=== PATIENT | male | born 1965 | race Caucasian/White ===

== ENCOUNTER 2019-04-25 11:09 | Emergency (ER) | payer BC ==
[~2019-04-25] VITALS: Ht 172.7 cm; Wt 88.0 kg
[~2019-04-25 11:09] MED LIST: AZITHROMYCIN 2250 MG PO; DIABETA 1.25M1.25 M1 PO; IBUPROFEN 600600 M1 PO; LANTUS SUBQ; LISINOPRIL10 MG PO; LISINOPRIL2.5 MG PO; MICRONASE5 MG PO; NORCO 5-325 TA1 EACH PO; NOVOLIN N100 UNIT/3 SQ; PREDNISONE 2.52.5 M1 PO; ROBAXIN500 MG PO; SIMVASTATIN10 MG PO; VICODIN ES TAB1 EACH PO; ZOCOR
[2019-04-25] MEDS ORDERED: REGLAN 10 MG TA10 MG PO (11:36)
[2019-04-25] MEDS ORDERED: PROTONIX40 M1 PO (11:36)
[2019-04-25 11:41] LABS: ABSOLUTE BASOPHILS 0.1 thou/uL (0.0-0.2); ABSOLUTE EOSINOPHILS 0.6 thou/uL (0.0-0.7); ABSOLUTE LYMPHOCYTES 1.8 thou/uL (0.8-5.3); ABSOLUTE NEUTROPHILS 6.4 thou/uL (1.6-8.1); BASOPHILS 0.8 %; EOSINOPHILS 5.9 %; HEMATOCRIT 45.4 % (42.0-52.0); HEMOGLOBIN 15.3 gm/dL (14.0-18.0); LYMPHOCYTES 18.4 %; MCH 29.3 pg (26.0-34.0); MCHC 33.8 g/dL (28.0-37.0); MCV 86.9 fL (80.0-100.0); MPV 8.8 fl. (7.2-11.1); NUCLEATED RBCS 0 /100WBC; PLATELET COUNT* 206 thou/uL (150-400); POLYS 64.9 %; RBC 5.22 mil/uL (4.50-6.00); RDW-CV 14.7 % (10.5-14.5); WBC 9.8 thou/uL (4.0-11.0)
[2019-04-25 11:50] LABS: URINE BLOOD NEGATIVE (Negative); URINE CLARITY CLEAR; URINE COLOR YELLOW; URINE GLUCOSE-RANDOM 3+ (Negative); URINE KETONES 2+ (Negative); URINE LEUKOCYTES-REFLEX NEGATIVE (Negative); URINE NITRITE-REFLEX NEGATIVE (Negative); URINE PROTEIN NEGATIVE (Negative)
[2019-04-25 11:52] LABS: ANION GAP 12 mmol/L (7-16); BUN 12 mg/dL (7-18); CALCIUM 9.2 mg/dL (8.5-10.1); CHLORIDE 102 mmol/L (98-107); CO2 26 mmol/L (21-32); CREATININE 1.1 mg/dL (0.6-1.3); GLUCOSE 258 mg/dL (70-99); POTASSIUM 3.7 mmol/L (3.5-5.1); SODIUM 140 mmol/L (136-145)
[2019-04-25 11:52] LABS: ICTOTEST (BILI CONFIRMATORY) Negative (Negative); URINE BILIRUBIN 1+ (Negative)
[2019-04-25 12:04] LABS: ALBUMIN 3.7 g/dL (3.4-5.0); ALKALINE PHOSPHATASE 80 U/L (46-116); LIPASE 43 U/L (73-393); MAGNESIUM 1.9 mg/dL (1.8-2.4); SGOT 11 U/L (15-37); SGPT 16 U/L (30-65); TOTAL BILIRUBIN 0.7 mg/dL (<0.1-1.0); TOTAL PROTEIN 7.2 g/dL (6.4-8.2); TROPONIN-I LEVEL <0.06 ng/mL (<0.06)
[2019-04-25 12:14] LABS: AMP/METHAMP Negative (Negative); BARBITURATES Negative (Negative); BENZODIAZEPINES Negative (Negative); COCAINE Negative (Negative); METHADONE Negative (Negative); OPIATES Negative (Negative); PCP Negative (Negative); THC Negative (Negative)
[2019-04-25] MEDS ORDERED: ZOFRAN ODT4 MG PO (13:04)
[2019-04-25 13:55] VITALS: BP 158/81
--- NOTE | 2019-04-26 12:16 | EKG ---
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
== END 2019-04-25 13:56 | disposition home or self-care (01) ==
LOC: M.ERS 11:09
PROVIDERS: Physician Assistant
DX: E11.65 Type 2 diabetes mellitus with hyperglycemia (principal); R19.7 Diarrhea, unspecified; R10.84 Generalized abdominal pain; E78.00 Pure hypercholesterolemia, unspecified; I10 Essential (primary) hypertension; Z88.8 Allergy status to other drugs, medicaments and biological substances; Z79.4 Long term (current) use of insulin; Z79.899 Other long term (current) drug therapy